=== PATIENT | female | born 1975 | race Caucasian/White ===

== ENCOUNTER 2024-11-17 16:11 | Emergency (ER) | payer BC ==
[~2024-11-17] VITALS: Ht 170.2 cm; Wt 77.2 kg
--- NOTE | 2024-11-17 17:16 | Physician Documentation ---
History of Present Illness General Chief Complaint: Knee Pain Stated Complaint: KNEE PAIN Time Seen by MD: 17:01 History of Present Illness Initial Comments 49-year-old female brought to the emergency department for evaluation of acute left knee injury while tubing. Has a reports that there was deformity noted after the initial injury. She was wearing a life check it. Left knee is obv iously swollen, grossly neurologically intact with excellent cap refill. Patient in moderate severe pain with any type of movement. No prior knee injury history. Medication Reconciliation Allergies: Coded Allergies: No Known Allergies (Unverified , 11/17/24) Scheduled PRN Hydrocodone Bit/Acetaminophen 5/325 MG (Redkey 5/325 MG), 1-2 TAB PO Q4-6 hours PRN for pain Review of Systems All Other Systems at this time: Reviewed and Negative Constitutional: Denies: fever, chills Musc: Reports: pain, joint pain, joint swelling Physical Exam Physical Exam Vital Signs: Temperature: 98.2, Respiratory Rate: 16, Pulse Oximetry: 98, Weight: 77.200 General Appearance: alert, WD/WN, severe distress Head: normal inspection Pupils/EOM/Fundus: PERRLA Nose: normal inspection Oropharynx: normal inspection Neck: non-tender, full range of motion Respiratory: normal breath sounds Chest: no accessory muscle use Cardiovascular: normal peripheral pulses Gastrointestinal: normal palpation Back: normal inspection Extremities Left knee exam. Considerable global swelling without clinical suspicion compartment syndrome Fixed flexion of 5. Distal pulse present. Tenderness over the medial and lateral tibia, no ankle discomfort or deformity. Neurologic: oriented x4 Motor / Sensory: no motor deficit, no sensory deficit Psychiatric: normal mood/affect, anxiety Skin: normal color Progress Results/Orders Results/Orders Orders - MICHAEL RIOS PAC Normal Saline 500ml Iv Soln (Sodium Chlo (11/17/24 17:15) Cta Lower Extremity Lft (11/17/24 ) Morphine 4mg/Ml Inj. (Morphine Inj.) (11/17/24 19:18) Ortho Orders (11/17/24 ) Completed Orders - MICHAEL RIOS PAC Morphine 4mg/Ml Inj. (Morphine Inj.) (11/17/24 17:15) Cta Lower Extremity Lft (11/17/24 ) Iohexol 350mg/Ml 100ml (Omnipaque 350mg/ (11/17/24 18:30) Hydromorphone 1 Mg/Ml/Pf (Dilaudid Inj.) (11/17/24 19:50) Diphenhydramine Inj (Benadryl Inj.) (11/17/24 19:50) Medications Received in ER Medications (Trade) Dose Ordered Sig/Marleen Route PRN Reason Start Time Stop Time Status Last Admin Dose Admin (morphine inj.) 4 mg ONCE ONCE IV 11/17/24 17:15 11/17/24 17:18 DC 11/17/24 17:40 4 MG Sodium Chloride 500 ml @ 100 mls/hr Q5H IV 11/17/24 17:15 11/17/24 17:35 100 MLS/HR (morphine inj.) 2 mg Q15MIN PRN IV moderate or severe pain 4-10 11/17/24 19:18 11/17/24 19:40 2 MG (Dilaudid inj.) 1 mg ONCE ONCE IV 11/17/24 19:50 11/17/24 19:52 DC 11/17/24 20:02 1 MG (Benadryl inj.) 25 mg ONCE ONCE IV 11/17/24 19:50 11/17/24 19:51 DC 11/17/24 20:02 25 MG Vital Signs 11/17/24 11/17/24 11/17/24 11/17/24 16:56 17:40 19:05 19:07 Temp 98.2 Pulse 104 Resp 16 15 16 19 B/P (MAP) 129/74 (92) Pulse Ox 98 100 11/17/24 21:03 Pulse 107 Resp 19 B/P (MAP) 122/53 (76) Pulse Ox 100 Medical Decision Making Differential Diagnosis 49-year-old female brought to the emergency department for evaluation of acute left knee injury while tubing of the [place]. She had a shearing type of injury. Immediately felt the knee pop swell up was a considerable pain. She has remained gross allegedly intact with considerable swelling without bruising. Strong distal pulses present. A care in the emergency department included acute pain management with IV morphine, plain film imaging of the knee which a prelim exam by myself showed medial and lateral tibial plateau fracture with suspicion for transfers fracture. Patient needed further pain management in the form of Dilaudid prior to CTA imaging of the left extremity. CT imaging reassuring. Case discussed with orthopedist on-call Dr. Urrutia. Patient has remained in the emergency department overnight and will be discharged in the morning to return to her home of [facility]. No clinical suspicion for compartment syndrome. She has good excellent cap refill. Her pain has now become well-controlled and she is in a long-leg knee immobilizer. She will be frequent evaluated in the emergency department along with neuro checks throughout the evening in discharged to your primary care/orthopedist in the morning. She will be a rear seat passenger to [place]. Departure Impression: Primary Impression: Tibial plateau fracture, left Qualified Codes: S82.142A - Displaced bicondylar fracture of left tibia, initial encounter for closed fracture Additional Impressions: Internal derangement of knee Qualified Codes: M23.92 - Unspecified internal derangement of left knee Nondisplaced fracture of proximal end of fibula Condition: Stable Additional Instructions: You stay in the emergency department consisted of pain management, x-rays and CT imaging. Your case was discussed with the orthopedist on-call doctor for. Your knee immobilizer as well feeding and you have been provided crutches. Please continue to keep leg elevated and take pain medicine as directed and make it immediate follow up appointment with primary care for orthopedic referral. Referrals: NO PRIMARY CARE PROVIDER (PCP) Prescriptions Hydrocodone Bit/Acetaminophen 5/325 MG (Redkey 5/325 MG) 5 Mg/325 Mg Tablet 1-2 TAB PO Q4-6 hours PRN for pain, #16 TAB Prov: MICHAEL RIOS 11/17/24 Signature Scribe Signature: . Attestation: . MICHAEL RIOS Nov 17, 2024 17:16
[2024-11-17] MEDS: normal saline 500ml IV soln 500 ML IV SCH (17:35)
[2024-11-17] MEDS: morphine 4 MG/ML inj SYRINge IV ONE (17:40)
[2024-11-17] MEDS ORDERED: iohexol 350MG/ML 100ml bottle IV ONE (18:30)
--- NOTE | 2024-11-17 18:54 | RADIOLOGY REPORT ---
CLINICAL INDICATION: trauma TECHNIQUE: 5 views of the left knee DI KNEE, COMP 4 VW MIN Comparison: None FINDINGS/IMPRESSION: Acute tibial plateau fracture. There is a component at the medial tibial plateau with mild displaceme nt/depression as well as a nondisplaced component at the lateral tibial plateau (schatzker type 5). Probable acute nondisplaced fracture at the fibular head. Joint effusion with lipohemarthrosis.
[2024-11-17] MEDS ORDERED: HYDR-3965 PO (19:04)
[2024-11-17] MEDS ORDERED: morphine 2 MG/ML inj. syringe IV PRN (19:10)
[2024-11-17] MEDS: morphine 4 MG/ML inj SYRINge IV PRN (19:23)
[2024-11-17] MEDS: diphenhydrAMINE 50 mg/ml inj IV ONE (20:02)
[2024-11-17] MEDS: HYDROmorphone 1 mg/ml syringe IV ONE (20:02)
--- NOTE | 2024-11-17 20:14 | RADIOLOGY REPORT ---
Examination: CT CTA LOWER EXTREMITY LFT CLINICAL HISTORY: left Knee shearing accident Comparison: Left knee radiographs on same day Technique: Using helical technique, CT data from the sacrum through the toes was obtained during rapi d IV contrast infusion. The examination was timed to the arterial system to generate a CT angiographi c study. 3D images were generated at an independent work station. Dose reduction techniques included automated exposure control. Radiation Dose Information: CT Dose: CTDI volume is 40 mGy. Dose-length product is 1414 mGy*cm Contrast: 100 mL omni 350 Findings: Vascular: Right lower extremity: Common iliac artery: Partially visualized External iliac artery: Patent Internal iliac artery: Patent Common femoral artery: Patent Profunda femoral artery: Patent Superficial femoral artery: Patent Popliteal artery: Patent Anterior tibial artery: Patent Peroneal tibial trunk: Patent Peroneal artery: Patent Posterior tibial artery: Patent Dorsalis pedis artery: Patent Left lower extremity: Common iliac artery: Partially visualized External iliac artery: Patent Internal iliac artery: Patent Common femoral artery: Patent Profunda femoral artery: Patent Superficial femoral artery: Patent Popliteal artery: There is a short segment of mild luminal narrowing (series 2, image 956, series 602 , image 83). No evidence of active extravasation. No evidence of a dissection flap. Anterior tibial artery: Patent Peroneal tibial trunk: Patent Peroneal artery: Patent Posterior tibial artery: Patent Dorsalis pedis artery: Patent Pelvis: Several small hypodense foci in the lower uterine segment with the largest measuring 2.4 x 2. 0 cm. Urinary bladder is unremarkable. The right distal ureter is dilated (about 1 cm) without eviden ce of an obstructing stone. The partially visualized bowel segments are unremarkable. Appendix is par tially visualized and appears normal. Bones: Acute nondisplaced fracture at the left fibular head. Acute left tibial plateau fracture. Ther e is a component at the medial tibial plateau with mild displacement/ depression as well as a nondisp laced component of the lateral tibial plateau. There is also a nondisplaced transverse fracture compo nent along the tibial metaphysis which was not appreciated on comparison radiographs. Soft tissues: Soft tissue swelling surrounding the left knee. Left knee lipohemarthrosis. Impression: 1. Acute left tibial plateau fracture. In addition to fracture components at the medial and lateral t ibial plateaus seen on same day radiographs there is also a transverse fracture component extending t hrough the tibial metaphysis. 2. Acute nondisplaced left fibular head fracture. 3. Short segment of mild luminal narrowing in the left popliteal artery. This is favored to represen t mass effect from adjacent soft tissue swelling. Focal vessel wall injury is considered less likely. 4. Left knee lipohemarthrosis. 5. Nabothian cysts and/or fibroids in the lower uterine segment. 6. Mild dilation of the right distal ureter without evidence of obstructing calculi.
[2024-11-17] MEDS: HYDROmorphone inj. 0.5 MG/0.5 ML DISP.SYRIN IV ONE (22:53)
[2024-11-18] MEDS: acetaminophen 1,000mg/100ml IV 100 ML IV SCH (01:34)
[2024-11-18] MEDS: fentaNYL/PF 50MCG/1 ML 2ML syringe IV ONE ×3 (02:35→05:07)
[2024-11-18] MEDS: HYDROcodone/acetaminophen 10/325mg tab PO ONE ×2 (07:51→11:01)
[2024-11-18 11:10] VITALS: BP 141/71; PULSE 90; RESP 17; TEMP 98.2; O2SAT 97
== END 2024-11-18 11:15 | disposition home or self-care (01) ==
LOC: ER 16:12
DX: S82.142A Displaced bicondylar fracture of left tibia, initial encounter for closed fracture (principal); S82.402A Unspecified fracture of shaft of left fibula, initial encounter for closed fracture; M23.92 Unspecified internal derangement of left knee; X58.XXXA Exposure to other specified factors, initial encounter; Y93.89 Activity, other specified; Y92.89 Other specified places as the place of occurrence of the external cause; Y99.8 Other external cause status
CPT/HCPCS: 73564; 73706; 96361; 96365; 96375; 96376; 99285; J0131; J1171; J1200; J2270; J3010; J7040; Q9967; 96374; J7030